=== PATIENT | female | born 1950 | race Caucasian/White ===

== ENCOUNTER 2019-01-06 08:02 | Day surgery (SDC) | payer MEDICARE, BC ==
[2019-01-06] MEDS ORDERED: LIDOCAINE 2% MDV (20MG/ML) 20ML VIAL IV ONE (08:03)
[2019-01-06] MEDS ORDERED: PROPOFOL 10 MG/ML VIAL IV ONE (08:03)
--- NOTE | 2019-01-08 10:10 | Operative Note ---
OPERATION: COLONOSCOPY to the cecum. INDICATION: Colorectal cancer screening. Her last examination was 10 years ago. ANESTHESIA: Intravenous sedation was administered by the department of anesthesiology and included Diprivan titrated to effect. PROCEDURE: Following informed consent from this alert individual including a discussion of the risks and benefits of the procedure and an opportunity for the patient to ask questions, the patient was in the left lateral decubitus position. A digital rectal examination was performed. No abnormalities were noted. Following this, the Olympus [id number] video colonoscope was inserted into the rectum without resistance. The rectal mucosa had a normal appearance with normal folds and distensibility. The colonoscope was advanced up through the colon to the level of the cecum without much difficulty. Throughout the bowel the mucosa appeared normal, the folds were normal, and the bowel was fairly well distensible. The cecum was defined by noting the appendiceal orifice and ileocecal valve. From the base of the cecum, the colonoscope was then slowly withdrawn. No abnormalities were detected upon slow withdrawal of the colonoscope. Retroflexion in the rectum was likewise endoscopically normal. The instrument was straightened and removed. The patient tolerated the procedure well and was returned to the recovery area in stable condition. IMPRESSION: Normal colonoscopy to the cecum. RECOMMENDATIONS: The patient was advised to have recheck screening colonoscopy in 10 years' time or sooner if problems arise. Followup will otherwise be with Dr. Jc Haynes. As always, thank you for allowing me to participate in the care of your patient. MADALYN
== END 2019-01-06 09:50 | disposition home or self-care (01) ==
LOC: HOP 08:02
PROVIDERS: ATTEND Internal Medicine Gastroenterology
DX: Z12.11 Encounter for screening for malignant neoplasm of colon (principal); Z86.010 Personal history of colon polyps; I10 Essential (primary) hypertension
CPT/HCPCS: 00812; G0105

== ENCOUNTER 2019-05-01 08:01 | Day surgery (SDC) | payer MEDICARE ==
[~2019-05-01 08:01] MED LIST: ACETAMINOPHEN 1,000 MG/100 ML BTL IVPB ONE; SCOPOLAMINE 1 PATCH TDSY TD ONE
[2019-05-01] MEDS ORDERED: PROPOFOL 10 MG/ML VIAL IV ONE (08:02)
[2019-05-01] MEDS ORDERED: ONDANSETRON HCL IV 4 MG/2 ML VIAL IVP ONE (08:02)
[2019-05-01] MEDS ORDERED: MIDAZOLAM HCL 2MG/2ML VIAL IV ONE (08:02)
[2019-05-01] MEDS ORDERED: DEXAMETHASONE 4 MG/ML 1ML VIAL IVP ONE (08:02)
[2019-05-01] MEDS ORDERED: SEVOFLURANE 250 ML INH ONE (08:02)
[2019-05-01] MEDS ORDERED: FENTANYL PF 100MCG/2ML VIAL IV ONE (08:02)
[2019-05-01] MEDS ORDERED: LIDOCAINE 2% MDV (20MG/ML) 20ML VIAL IV ONE (08:02)
[2019-05-01] MEDS ORDERED: KETOROLAC 30 MG/ML VIAL IVP ONE (08:02)
[2019-05-01 08:22] LABS: ABSOLUTE NEUTROPHIL COUNT 3.81; BASO % 0.3 % (0-6); EOS % 3.8 % (0-6); HEMATOCRIT 40.3 % (35.0-47.0); HEMOGLOBIN 12.8 gm/dl (11.6-16.0); LYMPH % 21.5 % (16-45); MEAN CELL VOLUME 95.7 fl (81-97); MEAN CORPUSCULAR HEMOGLOBIN 30.4 pg (27-33); MEAN CORPUSCULAR HGB CONC 31.8 g/dl (32-36); MEAN PLATELET VOLUME 9.9 fl (7.4-10.4); MONO % 11.4 % (0-9); PLATELET COUNT 262 K/uL (130-400); RED BLOOD COUNT 4.21 M/uL (3.80-5.40); RED CELL DISTRIBUTION WIDTH 12.9 % (11.5-14.5); WHITE BLOOD COUNT W/O DIFF 6.1 K/uL (4.2-12.2)
[2019-05-01 08:33] LABS: BLOOD UREA NITROGEN 26 mg/dL (8-23); CREATININE 0.8 mg/dL (0.5-0.9); EST GLOMERULAR FILTRATION RATE > 60 mL/min; GLUCOSE,RANDOM 96 mg/dL (74-109)
[2019-05-01] MEDS ORDERED: RINGERS SOLUTION,LACTATED 1,000 ML IV ONE (08:44)
[2019-05-01] MEDS ORDERED: BUPIVACAINE 0.25% W/EPI MPF 30ML VIAL SQ ONE (10:43)
[2019-05-01] MEDS ORDERED: TRAMADOL HCL 50 MG TABLET PO ONE (11:33)
--- NOTE | 2019-05-02 10:42 | Operative Note ---
DATE OF SURGERY: 05/01/2019 SURGEON: Freddie Allen D.O. REFERRING PHYSICIAN: Jc Haynes M.D. PREOPERATIVE DIAGNOSIS: TORN MEDIAL MENISCUS LEFT KNEE. POSTOPERATIVE DIAGNOSIS: 1. TORN MEDIAL AND LATERAL MENISCUS LEFT KNEE. 2. 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 OPERATION: 1. ARTHROSCOPIC PARTIAL MEDIAL AND LATERAL MENISCECTOMY LEFT KNEE. 2. ARTHROSCOPIC CHONDROPLASTY MEDIAL FEMORAL CONDYLE PATELLA LEFT KNEE. DESCRIPTION: This 68-year-old female was taken to the Operating Room and placed in the supine position on the operating room table where general anesthesia was induced. The left lower extremity was elevated, it was exsanguinated, and the tourniquet inflated to 300 mmHg. Arthroscopic knee patel applied. The left knee was prepped with Hibiclens and draped in the usual sterile fashion. 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 Through an inferomedial portal, chondroplasty of the patella was performed to stabilize the articular cartilage there. The medial and lateral gutters were examined and found to be normal. The medial compartment was entered and a complex tear of the posterior horn of the medial meniscus was present, it extended into the body at about the 9:00 o'clock position. We then used the basket forceps and rotating shaver to resect back to the apex of the tear which is approximately the 11:00 o'clock position and then tapered in each direction around to the root, but the root was not torn, but we did remove unstable fragments of the posterior horn of the medial meniscus, it was then reprobed and confirmed to be stable. Grade 3 chondromalacia of the medial femoral condyle was present. Some flaps were grossly unstable and these were shaved with the rotating shaver. We then viewed the intercondylar notch and found it to be normal. The lateral compartment was entered and superficial tear of the body of the lateral meniscus was present at the periphery and this was shaved with the rotating shaver and reprobed and found to be stable. The articular cartilage in the lateral compartment appeared normal. The joint was copiously irrigated with lactated Ringer's solution. All areas were re-examined and no additional findings were present. The joint was suctioned, the instruments were removed, the portals were infiltrated with 0.25% Marcaine with Epinephrine, sterile dressings applied, tourniquet and knee patel released, and the patient was taken to the Recovery Room in satisfactory condition. GROSS PATHOLOGY: This patient demonstrated Grade 3 chondromalacia of the patella and medial femoral condyle, Grade 2 of the trochlea and medial tibial plateau. The patient had tears of both the medial and lateral meniscus as described above. JOB NUMBER: [id number] MTDD
== END 2019-05-01 12:00 | disposition home or self-care (01) ==
LOC: SUR 08:01
PROVIDERS: ATTEND Orthopaedic Surgery
DX: S83.232A Complex tear of medial meniscus, current injury, left knee, initial encounter (principal); S83.282A Other tear of lateral meniscus, current injury, left knee, initial encounter; M22.42 Chondromalacia patellae, left knee; I10 Essential (primary) hypertension; R01.1 Cardiac murmur, unspecified
CPT/HCPCS: 29882; 01400; 85025; 80048; 93005; J1885; J2405; J3010; J7120